=== PATIENT | male | born 1980 | race African-American/Black ===

== ENCOUNTER 2017-03-16 16:10 | Emergency (ER) | payer OTHER ==
--- NOTE | 2017-03-16 16:45 | EDM.PDOC ---
ED HPI GENERAL MEDICAL PROBLEM - General Chief Complaint: Skin Complaint Stated Complaint: PT HAS RASH Time Seen by Provider: 03/16/17 16:40 Source of Information: Reports: Patient History Limitations: Reports: No Limitations - History of Present Illness INITIAL COMMENTS - FREE TEXT/NARRATIVE: History of present illness: [37-year-old male presenting with complaints of rash and excoriated area in his anal region secondary to a topical cream given for hemorrhoids] Review of systems: As per history of present illness and below otherwise all systems reviewed and negative. Past medical history: As per history of present illness and as reviewed below otherwise noncontributory. Surgical history: As per history of present illness and as reviewed below otherwise noncontributory. Social history: No reported history of drug or alcohol abuse. Family history: As per history of present illness and as reviewed below otherwise noncontributory. Physical exam: HEENT: Atraumatic, normocephalic, pupils reactive, negative for conjunctival pallor or scleral icterus, mucous membranes moist, throat clear, neck supple, nontender, trachea midline. Lungs: Clear to auscultation, breath sounds equal bilaterally, chest nontender. Heart: S1S2, regular, negative for clicks, rubs, or JVD. Abdomen: Soft, nondistended, nontender. Negative for masses or hepatosplenomegaly. Negative for costovertebral tenderness. Pelvis: Stable nontender. Genitourinary: Deferred. Rectal: Deferred. Extremities: Atraumatic, negative for cords or calf pain. Neurovascular unremarkable. Neuro: Awake, alert, oriented. Cranial nerves II through XII unremarkable. Cerebellum unremarkable. Motor and sensory unremarkable throughout. Exam nonfocal. Discussed with patient the need to stop the topical ointment secondary to irritation and rash Discussed use of calamine or other soothing topical Diagnostics: [] Therapeutics: [] Impression: [Adverse reaction to topical medication, rash] Plan: [Calamine, treatment of hemorrhoids with increased fiber, stool soft, and other palliative supportive measures] Definitive disposition and diagnosis as appropriate pending reevaluation and review of above. Rectal Pain Score (Numeric/FACES): 7 - Related Data Allergies Allergy/AdvReac Type Severity Reaction Status Date / Time No Known Allergies Allergy Verified 03/16/17 16:29 Home Meds: Home Meds Nifedipine/Diltiazem Ointment 1 ml TOP TID 03/16/17 [History] Pramoxine HCl/Calamine [Calamine Medicated Lotion] 177 ml TP QID #2 lotion 03/16 [Rx] ED ROS GENERAL - Review of Systems Review Of Systems: See Below (The history of present illness) ED EXAM, SKIN/RASH Exam: See Below (See history of present illness) Course - Vital Signs Last Recorded V/S: Last Vital Signs Temp 36.2 C 03/16/17 16:25 Pulse 78 03/16/17 16:25 Resp 18 03/16/17 16:25 BP 136/93 H 03/16/17 16:25 Pulse Ox 98 03/16/17 16:25 Departure - Departure Time of Disposition: 16:45 Disposition: Home, Self-Care 01 Condition: good Clinical Impression: Contact dermatitis - Discharge Information Forms: ED Department Discharge Additional Instructions: The following information is given to patients seen in the emergency department who are being discharged to home. This information is to outline your options for follow-up care. We provide all patients seen in our emergency department with a follow-up referral. The need for follow-up, as well as the timing and circumstances, are variable depending upon the specifics of your emergency department visit. If you don't have a primary care physician on staff, we will provide you with a referral. We always advise you to contact your personal physician following an emergency department visit to inform them of the circumstance of the visit and for follow-up with them and/or the need for any referrals to a consulting specialist. The emergency department will also refer you to a specialist when appropriate. This referral assures that you have the opportunity for follow-up care with a specialist. All of these measure are taken in an effort to provide you with optimal care, which includes your follow-up. Under all circumstances we always encourage you to contact your private physician who remains a resource for coordinating your care. When calling for follow-up care, please make the office aware that this follow-up is from your recent emergency room visit. If for any reason you are refused follow-up, please contact the [facility] Emergency Department at and asked to speak to the emergency department charge nurse. Take medication as directed Increase fiber in your diet and stool softeners to facilitate improvement in your hemorrhoids Followup with your PCP 1-2 days Return to ED as needed as discussed
[2017-03-16 17:18] VITALS: BP 129/89
== END 2017-03-16 17:05 | disposition home or self-care (01) ==
LOC: MW.ED 16:10
DX: L25.1 Unspecified contact dermatitis due to drugs in contact with skin (principal)
CPT/HCPCS: 99282